=== PATIENT | male | born 1945 | race Caucasian/White ===

== ENCOUNTER → 2018-06-08 | Outpatient (CLI) | payer MEDICARE, OTHER | LOC: COL.RAD 11:49 | DX: M48.02 Spinal stenosis, cervical region (principal); M47.813 Spondylosis without myelopathy or radiculopathy, cervicothoracic region ==

== ENCOUNTER 2018-11-13 09:45 | Outpatient (RCR) | payer MEDICARE, OTHER | END 2018-11-21 | LOC: MKS.ESL.PT | DX: M54.12 Radiculopathy, cervical region (principal); M48.02 Spinal stenosis, cervical region ==

== ENCOUNTER 2018-12-04 09:45 | Outpatient (RCR) | payer MEDICARE, OTHER | END 2019-02-25 | LOC: MKS.ESL.PT | DX: M54.12 Radiculopathy, cervical region (principal) ==

== ENCOUNTER 2020-08-27 13:00 | Outpatient (RCR) | payer MEDICARE | END 2020-09-18 11:10 | disposition home or self-care (01) | LOC: WSOT 13:00 | DX: M72.0 Palmar fascial fibromatosis [Dupuytren] (principal) ==